=== PATIENT | female | born 1950 ===

== ENCOUNTER 2020-06-16 07:45 | Inpatient (IN) | payer OTHER ==
[~2020-06-16] VITALS: Ht 160 cm; Wt 81.6 kg
[2020-06-16] MEDS ORDERED: ATACAND32 MG PO (09:52)
[2020-06-16] MEDS ORDERED: TENORMIN100 M1 PO (09:52)
[2020-06-16] MEDS ORDERED: CREST PO (09:53)
[2020-06-16] MEDS ORDERED: FIORICET PO (09:53)
[2020-06-16] MEDS ORDERED: HYDROCHL PO (09:54)
[2020-06-16] MEDS ORDERED: [UNRECOGNIZED DRUG - OTHER] (10:35)
[2020-06-16] MEDS ORDERED: HUMULOG (10:42)
[2020-07-14] MEDS ORDERED: CLONAZEPAM2 MG (07:51)
[2020-07-14] MEDS ORDERED: FAMOTIDINE40 MG (07:51)
[2020-07-14] MEDS ORDERED: TOLTERODINE TART2 M1 (07:51)
[2020-07-14] MEDS ORDERED: TIMOLOL MALEATE5 M4 (07:51)
[2020-07-14] MEDS ORDERED: CLOTRIMAZOLE-BE15 G1 (07:51)
[2020-07-14] MEDS ORDERED: HUMULIN R500 UNIT/2 (07:52)
[2020-07-14] MEDS ORDERED: CITALOPRAM HBR20 MG (07:52)
[2020-07-14] MEDS ORDERED: PANTOPRAZOLE SO40 MG (07:52)
[2020-07-14] MEDS ORDERED: BUTALB-ACETAMI1 EAC2 (07:52)
[2020-07-14] MEDS ORDERED: ALPRAZOLAM2 MG (07:52)
[2020-07-14] MEDS ORDERED: GABAPENTIN800 M1 (07:53)
[2020-07-14] MEDS ORDERED: EZETIMIBE-SIMV1 EAC3 (07:53)
[2020-07-14] MEDS ORDERED: TRAZODONE HCL100 MG (07:53)
[2020-07-14] MEDS ORDERED: HYDROCHLOROTHIA25 MG (07:53)
[2020-07-14] MEDS ORDERED: ROSUVASTATIN CA40 MG (07:54)
[2020-07-16] MEDS ORDERED: INTEGRA PLUS C1 EACH PO (06:54)
[2020-07-16] MEDS ORDERED: DUI500 PO (06:54)
[2020-07-16] MEDS ORDERED: DOLOGESIC 500-1 EACH PO (06:54)
[2020-07-16] MEDS ORDERED: XARELTO10 MG PO (06:54)
== END 2020-07-16 13:47 | DRG 470 ==
LOC: SURH 06-23 07:00 → O/R 07-14 05:30 → SURH 07-14 07:00
PROVIDERS: ADMIT Orthopaedic Surgery Sports Medicine; ATTEND Orthopaedic Surgery Sports Medicine
PROC: 0SRC0J9 Replacement of Right Knee Joint with Synthetic Substitute, Cemented, Open Approach (ICD-10-PCS; principal; 2020-07-14 07:00)
DX: M17.11 Unilateral primary osteoarthritis, right knee (principal); I10 Essential (primary) hypertension; E11.9 Type 2 diabetes mellitus without complications; Z79.4 Long term (current) use of insulin